=== PATIENT | male | born 1990 | race Caucasian/White ===

== ENCOUNTER 2017-12-24 16:58 | Emergency (ER) | payer MEDICAID ==
[~2017-12-24] VITALS: Ht 180.3 cm; Wt 61.0 kg
[~2017-12-24 16:58] MED LIST: NO HOME MEDS
[2017-12-24] MEDS ORDERED: CLIN-80 PO (17:33)
[2017-12-24 17:45] VITALS: BP 132/78
== END 2017-12-24 17:47 | disposition home or self-care (01) ==
LOC: ER 16:59
DX: J32.9 Chronic sinusitis, unspecified (principal); F17.200 Nicotine dependence, unspecified, uncomplicated; F12.10 Cannabis abuse, uncomplicated; Z79.899 Other long term (current) drug therapy
CPT/HCPCS: 99283